=== PATIENT | female | born 1960 | race Caucasian/White ===

== ENCOUNTER 2019-10-07 14:33 | Outpatient (CLI) | payer BC, SELFPAY ==
--- NOTE | ~2019-10-07 | XR_ITS ---
EXAMINATION: XR pelvis 1-2V DATE: 10/07/2019 14:57 INDICATION: Left hip pain. TECHNIQUE: An anteroposterior view of the pelvis was obtained. COMPARISON: None. FINDINGS: Bone alignment is normal. No fracture. There is mild osteoarthritis of the hips. There is m ild lumbar spondylosis. IMPRESSION: 1. Mild osteoarthritis of the hips. Reviewed, dictated and finalized at location A.
--- NOTE | ~2019-10-07 | XR_ITS ---
EXAMINATION: XR hip LT min 2V DATE: 10/07/2019 14:57 INDICATION: Left hip pain. TECHNIQUE: 3 views of left hip were obtained. COMPARISON: None. FINDINGS: Bone alignment is normal. No fracture. There is mild left hip osteoarthritis. IMPRESSION: 1. Mild left hip osteoarthritis. Reviewed, dictated and finalized at location A.
--- NOTE | ~2019-10-07 | XR_ITS ---
EXAMINATION: XR lumbar spine 2-3V, XR sacrum coccyx min 2V EXAM DATE: 10/07/2019 14:57 INDICATION: Low back, sacral pain. States since fall one year ago. TECHNIQUE: Lumber spine frontal, lateral, lateral L5-S1 projections for interpretation. Frontal proj ection sacrum, inlet projection sacrum and coccyx, lateral projections sacrum and coccyx. There are n o prior studies for comparison. FINDINGS: Sacrum, sacroiliac joints, sacral arcuate lines are intact. There are no acute fractures i dentified. No spondylolysis. Minimal lumbar disc disease and mild facet arthropathy. Vertebral body h eights are maintained. The vertebral bodies are aligned in the AP dimension. Paraspinal soft tissue i s unremarkable. IMPRESSION: Mild lumbar facet arthropathy. Unremarkable sacrum. Reviewed, dictated and finalized at location A. IMPRESSION: Mild lumbar facet arthropathy. Unremarkable sacrum.
== END 2019-10-07 14:34 | disposition home or self-care (01) ==
LOC: ANHIMG 14:37
PROVIDERS: PCP Family Medicine; Visit Provider Nurse Practitioner Family
DX: M25.552 Pain in left hip (principal); M54.5 Low back pain; M12.88 Other specific arthropathies, not elsewhere classified, other specified site; M16.0 Bilateral primary osteoarthritis of hip
CPT/HCPCS: 72100; 72170; 72220; 73502

== ENCOUNTER 2019-12-17 23:01 | Emergency (ER) | payer BC, SELFPAY ==
[2019-12-17 23:03] VITALS: BP 114/74; PULSE 65; RESP 18; TEMP 36.6; O2SAT 98
--- NOTE | 2019-12-17 23:40 | ED.ABDPAIN ---
HPI - Abdominal Pain General Chief Complaint: Abdominal Pain Stated Complaint: R sided abd pain Time Seen by Provider: 12/17/19 23:10 History of Present Illness HPI narrative: Right lateral abdominal pain since yesterday. COnstant. Worse with taking a deep breath and twisting movements. Tender to touch. No nausea, vomiting, diarrhea, constipation, cough, SOB. Related Data Allergies Allergy/AdvReac Type Severity Reaction Status Date / Time Penicillins Allergy Intermediate N/V Verified 08/28/11 16:44 HYDROCODONE BIT AdvReac Intermediate N/V Uncoded 08/28/11 16:44 PROPOXYPHENE NAPSYLATE AdvReac Intermediate N/V Uncoded 08/28/11 16:44 Review of Systems Review of Systems: All systems reviewed & are unremarkable except as noted in HPI and below Constitutional: Constitutional: Denies chills and Denies fever(s) Cardiovascular: Cardiovascular: Denies chest pain Respiratory: Respiratory: Denies dyspnea Gastrointestinal: Gastrointestinal: Reports abdominal pain, Reports nausea and Reports vomiting [facility] Social History Social History (Updated 12/18/19 @ 04:21 by Dre Casper MD) Smoking status: Never smoker Exam Const: General: healthy appearing, no acute distress and alert Orientation/consciousness: patient oriented x3 HENMT: Head: normal to inspection Resp: Effort & Inspection: normal respiratory effort Auscultation: clear to auscultation bilaterally Cardio: Rate: regular rate Rhythm: regular rhythm GI: Inspection: non-distended GI Palp: Yes Soft to palpation and Yes Tenderness to palpation present (GI) (superficial tenderness to right abdomen. ) Skin: General skin exam: normal color Neuro: General: patient oriented x3 and moves all extremities Speech: normal speech Extrem: General: normal to inspection Course Vital Signs Vital signs: Vital Signs Temperature 36.6 C 12/17/19 23:03 Pulse Rate 65 12/17/19 23:03 Respiratory Rate 18 12/17/19 23:03 Blood Pressure 114/74 12/17/19 23:03 Pulse Oximetry 98 12/17/19 23:03 Temperature 36.7 C 12/18/19 02:39 Pulse Rate 62 12/18/19 02:39 Respiratory Rate 16 12/18/19 02:39 Blood Pressure 104/68 12/18/19 02:39 Pulse Oximetry 100 12/18/19 02:39 MDM - Abdominal Pain MDM Narrative Medical decision making narrative: H&P indicate muscle strain. Labs unremarkable. Feeling 100% improved after toradol and valium Medical Records Attestation: I reviewed the patient's medical records. Lab Data Attestation: I reviewed the patient's lab results. Result diagrams: 12/17/19 23:37 12/17/19 23:37 Labs: Lab Results 12/17/19 12/17/19 12/18/19 Range/Units 23:37 23:37 01:43 WBC 7.3 (4.5-10.0) K/mm3 RBC 3.85 L (4.2-5.4) M/mm3 Hgb 12.4 (12.0-15.0) g/dL Hct 36.5 L (37.0-47.0) % MCV 94.8 (80-100) fl MCH 32.2 (26-34) pg MCHC 34.0 (32-36) g/dl RDW 13.0 (11.5-14.5) % Plt Count 211 (150-375) k/mm3 MPV 10.7 H (7.4-10.4) fl Immature Gran % (Auto) 0.1 (0-0.5) % Neut % (Auto) 53.8 (45.5-73.1) % Lymph % (Auto) 33.9 (18.3-44.2) % Ramsey % (Auto) 9.5 H (2.6-8.5) % Eos % (Auto) 2.2 (0-4.4) % Baso % (Auto) 0.5 (0.2-1.2) % Lymph # (Auto) 2.47 (0.9-3.2) K/mm3 Ramsey # (Auto) 0.7 H (0.1-0.6) K/mm3 Eos # (Auto) 0.2 (0-0.3) K/mm3 Baso # (Auto) 0.0 (0.0-0.1) K/mm3 Abs Immat Gran (auto) 0.01 (0.00-0.031) K/mm3 Absolute Neuts (auto) 3.9 (1.3-6.7) K/mm3 Absolute Nucleated RBC 0.0 (0.0-0.012) K/mm3 Nucleated RBC % 0.0 (0.0-0.2) % Sodium 135 L (137-145) mmol/L Potassium 3.8 (3.4-5.0) mmol/L Chloride 103 (98-107) mmol/L Carbon Dioxide 26 (22-30) mmol/L Anion Gap 6 L (8-16) mmol/L BUN 15 (7-17) mg/dL Creatinine 1.00 (0.7-1.0) mg/dL Estim Creat Clear Calc 44 ml/min Estimated GFR 57 L (59 - ) Glucose 88 (65-105) mg/dL Calcium 9.0 (8.4-10.2) mg/dL Total Bilirubin
[2019-12-17] MEDS: KETOROLAC 30 MG/ML VIAL (*BKC) IV PUSH (23:43)
[2019-12-17 23:44] LABS: Basophils Percent Auto 0.5 % (0.2-1.2); Eosinophils Absolute Auto 0.2 K/mm3 (0-0.3); Eosinophils Percent Auto 2.2 % (0-4.4); Hematocrit 36.5 % (37.0-47.0); Hemoglobin 12.4 g/dL (12.0-15.0); Immature Granulocyte Absolute 0.01 K/mm3 (0.00-0.031); Immature Granulocyte Percent A 0.1 % (0-0.5); Lymphocytes Absolute Auto 2.47 K/mm3 (0.9-3.2); Lymphocytes Percent Auto 33.9 % (18.3-44.2); Mean Corpuscular Hemoglobin 32.2 pg (26-34); Mean Corpuscular Volume 94.8 fl (80-100); Mean Platelet Volume 10.7 fl (7.4-10.4); Monocytes Absolute Auto 0.7 K/mm3 (0.1-0.6); Monocytes Percent Auto 9.5 % (2.6-8.5); Neutrophils Absolute Auto 3.9 K/mm3 (1.3-6.7); Neutrophils Percent Auto 53.8 % (45.5-73.1); Platelet Count Result 211 k/mm3 (150-375); Red Blood Count 3.85 M/mm3 (4.2-5.4); White Blood Count 7.3 K/mm3 (4.5-10.0)
[2019-12-17 23:55] LABS: Alanine Aminotransferase 13 U/L (4-35); Albumin Level 4.2 g/dL (3.5-5.1); Alkaline Phosphatase 47 U/L (38-126); Anion Gap 6 mmol/L (8-16); Aspartate Amino Transferase 22 U/L (14-36); Bilirubin,Total 0.2 mg/dL (0.2-1.3); Blood Urea Nitrogen 15 mg/dL (7-17); Carbon Dioxide 26 mmol/L (22-30); Chloride 103 mmol/L (98-107); Estimated CRCL calculation 44 ml/min; Estimated Glomerular Filt Rate 57; Glucose 88 mg/dL (65-105); Lipase 144 U/L (23-300); Potassium 3.8 mmol/L (3.4-5.0); Sodium 135 mmol/L (137-145)
[2019-12-18 01:05] VITALS: BP 113/64; PULSE 62; RESP 16; O2SAT 99
[2019-12-18 01:52] LABS: Add Urine Microscopic? YES; Appearance Urine Clear (Clear); Bacteria Urine Trace /hpf; Bilirubin Urine Negative (Negative); Blood Urine 2+ (Negative); Color Urine Straw (Yellow); Glucose Urine UA Negative (Negative); Ketones Urine Negative (Negative); Leukocyte Esterase Ur Negative LEU/UL (Negative); Nitrate Urine Negative (Negative); Protein Urine Negative (Negative); RBC Urine 0-2 /hpf (0-2); Specific Grav Ur 1.011 (1.001-1.035); Squamous Epithelial Cell Urine Few /hpf (Few); Urobilinogen Urine Negative mg/dL (<2.0); WBC Urine 0-3 /hpf
[2019-12-18 02:39] VITALS: BP 104/68; PULSE 62; RESP 16; TEMP 36.7; O2SAT 100
== END 2019-12-18 02:39 | disposition home or self-care (01) ==
PROVIDERS: Emergency Provider Emergency Medicine; PCP Family Medicine
DX: S39.011A Strain of muscle, fascia and tendon of abdomen, initial encounter (principal); X58.XXXA Exposure to other specified factors, initial encounter
CPT/HCPCS: 36415; 80053; 81001; 83690; 85025; 96374; 96375; 99284; J1885; J3360

== ENCOUNTER 2020-01-05 07:50 | Outpatient (CLI) | payer BC, SELFPAY ==
--- NOTE | ~2020-01-05 | US_ITS ---
EXAMINATION: US right upper quadrant DATE: 01/05/2020 08:58 INDICATION: Right upper quadrant abdominal pain. TECHNIQUE: Multiple grayscale and Doppler ultrasound images of the abdomen were obtained. COMPARISON: CT abdomen and pelvis 09/18/2005 FINDINGS: The visualized portions of the head and body of the pancreas are normal. The liver is melissa l without focal lesion. There is normal flow in main portal vein. The gallbladder is normal in size a nd contains gallstones. No gallbladder wall thickening or sonographic Perez sign. The common duct is normal and measures 6 mm. IMPRESSION: 1. Cholelithiasis. No evidence of acute cholecystitis. Reviewed, dictated and finalized at location A.
== END 2020-01-05 07:51 | disposition home or self-care (01) ==
PROVIDERS: PCP Family Medicine; Visit Provider Nurse Practitioner
DX: K80.20 Calculus of gallbladder without cholecystitis without obstruction (principal)
CPT/HCPCS: 76705

== ENCOUNTER → 2020-03-28 10:04 | Outpatient (CLI) | payer BC, SELFPAY ==
--- NOTE | ~2020-03-28 | MM_ITS ---
EXAMINATION: MM screening [place] BI w ridge HISTORY: Screening mammogram TECHNIQUE: Craniocaudal and mediolateral oblique 3-D tomosynthesis images were obtained and synthetic 2-D images were generated. CAD analysis was submitted and interpreted. COMPARISON: 02/18/2019 diagnostic left mammogram and complete left breast ultrasound 02/04/2019, 11/30/2017, 08/03/2016 bilateral digital screening mammogram examinations BREAST PARENCHYMAL COMPOSITION: There are scattered areas of fibroglandular density. FINDINGS: A biopsy marker on the right; history of prior benign right breast biopsy Stable fibroglandular asymmetry. There is no evidence of suspicious mass, calcification, or bi architect ural distortion to suggest malignancy in either breast. There has been no suspicious interval change. IMPRESSION: 1. No mammographic evidence of malignancy. 2. Recommend routine screening mammography in one year. BI-RADS Category 2: Benign finding(s). Reviewed, dictated and finalized at location A. [employer]
== END ==
PROVIDERS: Visit Provider Nurse Practitioner Obstetrics & Gynecology
DX: Z12.31 Encounter for screening mammogram for malignant neoplasm of breast (principal)
CPT/HCPCS: 77063; 77067

== ENCOUNTER → 2021-12-05 10:24 | Outpatient (CLI) | payer BC, SELFPAY ==
--- NOTE | ~2021-12-05 | DEXA_ITS ---
Bone Density Report Name: MARY OSORIO Age: 61 Sex: Female Ethnicity: White Date of : 1960 Indication: monitoring treatment; height loss; postmenopausal Referring Provider: Claudia, Carrie Benton Study: Bone densitometry was performed. Exam Date: December 05, 2021 Accession number: [id number] Bone Density: Region BMD T-score Z-score Classification AP Spine (L1-L4) 1.092 0.4 1.9 Normal Femoral Neck (Left) 0.755 -0.8 0.5 Normal Total Hip (Left) 0.985 0.4 1.4 Normal Femoral Neck (Right) 0.752 -0.9 0.5 Normal Total Hip (Right) 0.943 0.0 1.0 Normal Total Hip Mean 0.964 0.2 1.2 Normal World Health Organization criteria for BMD impression classify patients as: Normal (T-score at or above -1.0), Osteopenia (T-score between -1.0 and -2.5), or Osteoporosis (T-score at or below -2.5). 10-year Fracture Risk: FRAX not reported because: All T-scores for Spine Total, Hip Total, Femoral Neck at or above -1.0 Treated for osteoporosis Previous Exams: Region Exam Age BMD T-score BMD Change BMD Change Date g/cm2 vs Baseline vs Previous AP Spine(L1-L4) 12/05/2021 61 1.092 0.4 0.098* 0.098* 07/22/2015 54 0.993 -0.5 Total Hip(Left) 12/05/2021 61 0.985 0.4 0.073* 0.073* 07/22/2015 54 0.912 -0.2 Total Hip(Right) 12/05/2021 61 0.943 0.0 0.045* 0.045* 07/22/2015 54 0.899 -0.4 *Denotes significance at 95% confidence level, LSC for AP Spine = 0.022 g/cm2, LSC for Total Hip = 0.027 g/cm2 Clinical Information Provided by Patient: Has 3 or more alcoholic drinks per day Is being treated for osteoporosis Has used the following medications: HRT (i.e. estrogen/hormone therapy), RUDOLPH SIN Patient maximum height was 64 Menopause Age: 50 Drinks caffeinated beverages Onset of menses at age 12 Number of children 2 Impression: The patient has normal bone mass. The patient has risk factors, including: excessive alcohol use. No significant bone loss was observed. Discussion: PATIENT UNDER TREATMENT WITH NO SIGNIFICANT BMD LOSS SINCE LAST EXAM. In an untreated patient, BMD typically declines with age. A lack of decline or gain is usually a sign that treatment is efficacious and fracture risk is reduced. It is important to ask patients whether they are taking their medications and to encourage continued and appropriate compliance with their osteoporosis therapies to reduce fracture risk. It is also
--- NOTE | ~2021-12-05 | MM_ITS ---
EXAMINATION: MM screening [place] BI w ridge HISTORY: Screening TECHNIQUE: Craniocaudal and mediolateral oblique 3-D tomosynthesis images were obtained and synthetic 2-D images were generated. CAD analysis was submitted and interpreted. COMPARISON: Comparison to multiple prior studies sequentially, with oldest reviewed study dated 08/03. BREAST PARENCHYMAL COMPOSITION: The breasts are heterogenously dense, which may obscure small masses FINDINGS: The right breast is stable without evidence for malignancy. There is a mass in the subareol ar location of the left breast, lower central left breast. IMPRESSION: 1. Left breast mass in the lower central left breast anteriorly. 2. Additional mammographic views and possible breast ultrasound are recommended. BI-RADS Category 0: Incomplete: Needs additional imaging evaluation. Reviewed, dictated and finalized at location A. IMPRESSION: 1. Left breast mass in the lower central left breast anteriorly. 2. Additional mammographic views and possible breast ultrasound are recommended . BI-RADS Category 0: Incomplete: Needs additional imaging evaluation.
== END ==
PROVIDERS: PCP Family Medicine; Visit Provider Nurse Practitioner Obstetrics & Gynecology
DX: Z12.31 Encounter for screening mammogram for malignant neoplasm of breast (principal); Z78.0 Asymptomatic menopausal state; R92.8 Other abnormal and inconclusive findings on diagnostic imaging of breast
CPT/HCPCS: 77063; 77067; 77080

== ENCOUNTER → 2021-12-19 08:37 | Outpatient (CLI) | payer BC, SELFPAY ==
--- NOTE | ~2021-12-19 | MMUS_ITS ---
EXAMINATION: MM diagnostic [place] LT w ridge, US breast LT complete HISTORY: Mass reported in lower central anterior left breast on 12/05/2021 screening mammogram TECHNIQUE: Additional 3-D tomosynthesis images of the left breast were performed and synthetic 2-D im ages were generated. CAD analysis was submitted and interpreted. High resolution complete left breast ultrasound including all 4 quadrants and subareolar area was performed. COMPARISON: 12/05/2021 bilateral screening mammogram FINDINGS: MAMMOGRAPHIC FINDINGS: Circumscribed approximately 7 x 9 mm opacity is noted in the lower central left breast (ML Tomosynthe sis image 30/68; MLO spot Tomosynthesis image 35/63), corresponding to the screening mammogram findin g. ULTRASOUND: 4:00 2 cm from nipple: 6.9 mm simple cyst 6:00 1 cm from nipple: Septated 6.7 x 8.3 x 7.2 mm cyst No suspicious mass or shadowing is detected. IMPRESSION: 1. Benign findings 2. Routine mammographic screening is recommended BI-RADS Category 2: Benign finding(s). Reviewed, dictated and finalized at location A. IMPRESSION: 1. Benign findings 2. Routine mammographic screening is recommended BI-RADS Category 2: Benign finding(s).
== END ==
PROVIDERS: PCP Family Medicine; Visit Provider Nurse Practitioner Obstetrics & Gynecology
DX: R92.8 Other abnormal and inconclusive findings on diagnostic imaging of breast (principal)
CPT/HCPCS: 76641; 77061; 77065; G0279

== ENCOUNTER 2022-12-08 08:57 | Outpatient (CLI) | payer BC, SELFPAY ==
--- NOTE | 2022-12-08 09:15 | ECG_ITS ---
Measurements Intervals [place] Rate: 56 P: 64 MD: 151 QRS: -20 QRSD: 86 T: 28 QT: 404 QTc: 393 Interpretive Statements SINUS BRADYCARDIA NO PREVIOUS ECG AVAILABLE FOR COMPARISON Electronically Signed On 12-08-2022 9:28:33 CDT by Cheyenne Dyer M.D.
== END 2022-12-08 08:58 | disposition home or self-care (01) ==
PROVIDERS: PCP Family Medicine; Visit Provider Anesthesiology
DX: Z01.810 Encounter for preprocedural cardiovascular examination (principal); R00.1 Bradycardia, unspecified; F17.210 Nicotine dependence, cigarettes, uncomplicated
CPT/HCPCS: 93005

== ENCOUNTER 2022-12-19 00:50 | Day surgery (SDC) | payer BC, SELFPAY ==
[2022-12-07 15:10] VITALS: BMI 26.6
--- NOTE | 2022-12-07 15:32 | PC.NURSE ---
Report to the Outpatient Waiting Room, entrance under the green pavilion located off [facility], at time _1030 on date _12/19/22. Planned Procedure Time: 1230_. Time changes happen often and if your time is changed the preop area will call you the afternoon before. - You and your visitor will be asked to self-screen and do not enter if you have any COVID symptoms. - A mask is optional within the hospital at this time. Patients may have clear liquids (water, carbonated beverages, clear teas, apple juice) until 3 hours prior to surgery with a maximum of 20 ounces. - No food from midnight until time of surgery - Infants may have breast milk until 4 hours before surgery, formula 6 hours prior to surgery. - Children will be allowed to drink immediately following surgery. If applicable, please bring a bottle or sippy cup to assist with drinking. Juice, water, soda, and popsicles are readily available. For infants on formula, please bring formula the day of surgery. Pacifiers are allowed. Take the following medications with a SIP of water the morning of surgery: __n/a DO NOT STOP ANY OF YOUR OTHER PRESCRIPTION MEDICATIONS PRIOR TO SURGERY ?EXCEPT THE FOLLOWING Medications to discontinue per physician __multivitamin Date to take last dose____12/16/22 Please no make-up, nail palauan, hairspray, perfume, deodorant, or body powder the day of surgery. No jewelry (including any body piercings) or valuables the day of surgery, leave them at home. Please take a shower or bath the night before, or the morning of, surgery with an antibacterial soap. Wear comfortable, loose fitting clothing. Children are encouraged to wear pajamas. - Jewelry must be removed prior to entering the operating room. Rings and piercings that are not removed may be cut off. - The hospital will not accept responsibility for valuables. - Please leave all valuables, including medications, at home the day of surgery. If you are going home after surgery, a licensed local company hazmat driver must drive you home. - NO public transportation without another adult if you receive anesthesia. - We recommend that an adult stay with you for 24 hours following discharge. - We also recommend that you do not drive, make important decision, drink alcoholic beverages, or take any drugs that were not prescribed by your health care provider for at least 24 hours after your discharge time. For Pediatric surgeries, we recommend two adults accompany the child home. Follow any additional instructions given to you from your surgeon. If you or anyone in your household have experienced Covid symptoms in the past week, please notify your surgeon or the nurse liaison at the phone number below for possible testing. Telephone instructions given to Fany Jiménezand asked if any additional questions and then verbalized understanding. Patient advised to call surgeon office or pre surgery nurse liaison [phone] if any additional questions.
--- NOTE | 2022-12-18 13:40 | P.PNAN_ITS ---
Anes - Initial Pre Proc Eval Procedure: Operation Date: 12/19/22 12:30 Proposed Procedures p Laparoscopic Bilateral Salpingo Oophorectomy - Josselyn Rubio MD Date/Time: 12/18/22 13:40 Surgeon: Josselyn Rubio MD Pre Op Diagnosis: mass of ovary Patient Data Age: 62 Gender: F Height: 1.57 m Weight: 66 kg Allergies Allergy/AdvReac Type Severity Reaction Status Date / Time Penicillins Allergy Intermediate N/V Verified 08/28/11 16:44 HYDROCODONE BIT AdvReac Intermediate N/V Uncoded 08/28/11 16:44 PROPOXYPHENE NAPSYLATE AdvReac Intermediate N/V Uncoded 08/28/11 16:44 Home Medications Medication Instructions Recorded Confirmed Type ibuprofen 600 mg tablet 600 mg PO QID PRN pain #30 tabs 12/18/19 12/07/22 Rx estradiol-norethindrone acet 1 0.5 tablet PO EVERY OTHER DAY 12/07/22 12/07/22 History mg-0.5 mg tablet multivit with minerals-iron 18 1 tablet PO DAILY 12/07/22 12/07/22 History mg-folic ac 400 mcg-vit K 25 mcg tablet (Adults Multivitamin) Results Review: All pre-operative results and documents have been reviewed as part of the pre- operative evaluation. [facility] Social History Social History (Updated 12/18/19 @ 04:21 by Dre Casper MD) Smoking packs per day: 1 Smoking cigarettes per day: 20.0 Years smoked: 30 Smoking pack-years: 30.00 Smoking status: Former smoker Tobacco type: cigarettes Alcohol intake: current Substance use: never Last use: 05/2010 Living arrangements: with family Spiritual care concerns: No Anes - Eval Final PreProcedure Day of Procedure 12/18/22 13:40 Results Review: All pre-operative results and documents have been reviewed as part of the pre- operative evaluation. Informed Consent: The patient's anesthetic plan and its attendant risks and benefits were discussed with the patient/family/POA. Questions were solicited and answers provided to the satisfaction of the patient/family/POA.
[2022-12-19] VITALS (9 sets, daily range): BP systolic 99–122; BP diastolic 47–65; PULSE 50–66; RESP 10–18; TEMP 36.3–36.5; O2SAT 100; BMI 26.1
[2022-12-19] MEDS: LACTATED RINGERS 1,000 ML 30 ML IV CONT ×2 (10:55→14:37)
[2022-12-19] MEDS: KETOROLAC 15 MG/ML VIAL (*BKC) IV PUSH (11:05)
[2022-12-19] MEDS: ACETAMINOPHEN 500 MG TABLET 1000 MG PO (11:05)
--- NOTE | 2022-12-19 12:42 | P.PNAN_ITS ---
Anes - Initial Pre Proc Eval Procedure: Operation Date: 12/19/22 12:30 Proposed Procedures p Laparoscopic Bilateral Salpingo Oophorectomy - Josselyn Rubio MD Date/Time: 12/19/22 12:42 Surgeon: Josselyn Rubio MD Pre Op Diagnosis: mass of ovary Patient Data Age: 62 Gender: F Height: 1.57 m Weight: 64.8 kg Last Vital Signs Temp 36.3 C L 12/19/22 10:30 Pulse 60 12/19/22 10:30 Resp 16 12/19/22 10:30 BP 100/65 12/19/22 10:30 Pulse Ox 100 12/19/22 10:30 O2 Del Method Room Air 12/19/22 10:30 Allergies Allergy/AdvReac Type Severity Reaction Status Date / Time Penicillins Allergy Intermediate N/V Verified 12/19/22 11:00 hydrocodone AdvReac Intermediate Nausea and Verified 12/19/22 11:00 Vomiting propoxyphene AdvReac Intermediate Nausea and Verified 12/19/22 11:00 Vomiting Home Medications Medication Instructions Recorded Confirmed Type ibuprofen 600 mg tablet 600 mg PO QID PRN pain #30 tabs 12/18/19 12/07/22 Rx estradiol-norethindrone acet 1 0.5 tablet PO EVERY OTHER DAY 12/07/22 12/07/22 History mg-0.5 mg tablet multivit with minerals-iron 18 1 tablet PO DAILY 12/07/22 12/19/22 History mg-folic ac 400 mcg-vit K 25 mcg tablet (Adults Multivitamin) Patient hx anesthesia problems: none Family hx anesthesia problems: none Results Review: All pre-operative results and documents have been reviewed as part of the pre- operative evaluation. [facility] Social History Social History Smoking packs per day: 1 Smoking cigarettes per day: 20.0 Years smoked: 30 Smoking pack-years: 30.00 Smoking status: Former smoker Tobacco type: cigarettes Alcohol intake: current Substance use: never Last use: 05/2010 Living arrangements: with family Spiritual care concerns: No Anes - Eval Final PreProcedure Day of Procedure 12/19/22 12:42 Patient weight: overweight Heart: regular rate and rhythm Lungs: decreased breath sounds Airway: Mallampati scale class II Neurological: alert and oriented Last oral intake: >/= 8 hours ASA classification: II Emergent: no Anesthetic plan: proceed Anesthesia type and monitoring: general ETT and standard monitoring Results Review: All pre-operative results and documents have been reviewed as part of the pre- operative evaluation. Informed Consent: The patient's anesthetic plan and its attendant risks and benefits were discussed with the patient/family/POA. Questions were solicited and answers provided to the satisfaction of the patient/family/POA.
--- NOTE | 2022-12-19 12:45 | WPDHPUPDATE1 ---
History and Physical Update Update Date/Time: 12/19/22 12:45 History and Physical has been reviewed, including an updated exam of the patient. There are NO changes in the patient's condition. Risks, benefits, and alternatives have been discussed and questions answered. Patient agrees to proceed with procedure.
--- NOTE | 2022-12-19 14:32 | W.PM.PROC2 ---
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 Most were very small and vesicular in nature some appeared to be very small masses. Description of Procedure The patient was taken to the operating room. She was prepped and draped in the dorsal lithotomy position after induction general anesthesia. A 5 mm incision was made with a scalpel on the abdominal skin in the left upper quadrant of the abdomen. A 5 mm trocar was inserted into the intra-abdominal cavity under direct visualization the scope. In the same fashion a 11 mm left lower quadrant trocar was inserted and a 5 mm infraumbilical trocar was inserted. The above findings were noted. It appeared that a this for malignancy it was spread on the peritoneum up to the area of the diaphragm. It did not appear confined to the ovary, and therefore tissue samples could be obtained. So the ovaries were removed. Bilateral infundibulopelvic ligaments were cauterized and transected with LigaSure cautery. The para ovarian and para tubal salpinx was cauterized and transected around medially to the cornual region of the uterus where the suspensory ligament of the ovary and the fallopian tube were cauterized transected with LigaSure cautery. These were placed in a bag and taken at the left lower quadrant trocar site.. Prior to the removal of the ovaries peritoneal cytology was obtained. Fluids irrigated the pelvis and around the lower abdomen. Irrigation was withdrawn through a long cannula and a syringe. The pneumoperitoneum was reduced. The trocars were removed. Skin was closed with subcuticular 4 micro. The patient's incisions were covered with Dermabond. She was taken recovery room in stable condition. Sponge lap and needle counts were correct x2. Estimated Blood Loss 25 Complications No immediate complications Condition Stable Disposition Same day
[2022-12-19] MEDS: ONDANSETRON INJ 4 MG/2 ML VIAL IV PUSH (15:05)
[2022-12-19] MEDS: fentaNYL CITRATE INJ (*CRX) 100 MCG/2 ML VIAL 25 MCG IV PUSH ×2 (15:18→15:24)
[2022-12-19] MEDS: oxyCODONE HCL (*CRX) 5 MG TAB IR PO (16:04)
--- NOTE | 2022-12-26 13:46 | WPDHPUPDATE1 ---
History and Physical Update Update Date/Time: 12/26/22 13:46 History and Physical has been reviewed, including an updated exam of the patient. There are NO changes in the patient's condition. Risks, benefits, and alternatives have been discussed and questions answered. Patient agrees to proceed with procedure.
--- NOTE | 2022-12-26 13:57 | WPDHPUPDATE1 ---
History and Physical Update Update Date/Time: 12/26/22 13:57 History and Physical has been reviewed, including an updated exam of the patient. There are NO changes in the patient's condition. Risks, benefits, and alternatives have been discussed and questions answered. Patient agrees to proceed with procedure.
== END 2022-12-19 16:49 | disposition home or self-care (01) ==
PROVIDERS: PCP Family Medicine; Visit Provider Obstetrics & Gynecology
PROC: (CPT 49320; principal; 2022-12-19 12:30)
DX: D39.12 Neoplasm of uncertain behavior of left ovary (principal); N94.89 Other specified conditions associated with female genital organs and menstrual cycle; D27.9 Benign neoplasm of unspecified ovary; Z87.891 Personal history of nicotine dependence
CPT/HCPCS: 58661; 88104; 88108; 88305; 88342; A9270; J1100; J1885; J2250; J2405; J2704; J3010; J7030; J7120

== ENCOUNTER 2023-07-19 10:45 | Outpatient (CLI) | payer BC, SELFPAY ==
--- NOTE | ~2023-07-19 | MM_ITS ---
EXAMINATION: MM screening [place] w [facility] HISTORY: Screening mammogram TECHNIQUE: Craniocaudal and mediolateral oblique 3-D tomosynthesis images were obtained and synthetic 2-D images were generated. CAD analysis was submitted and interpreted. COMPARISON: 12/19/2021 diagnostic left mammogram and complete left breast ultrasound 12/05/2021, 03/28/2020 bilateral screening mammogram examinations BREAST PARENCHYMAL COMPOSITION: There are scattered areas of fibroglandular density. FINDINGS: There is a history of bilateral reduction mammoplasty in 2011. Stable mild fibroglandular a symmetry. There is no evidence of suspicious mass, calcification, or architectural distortion to sugg est malignancy in either breast. There has been no suspicious interval change. IMPRESSION: 1. Status post bilateral reduction mammoplasty. No mammographic evidence of malignancy 2. Recommend routine screening mammography in one year. BI-RADS Category 2: Benign finding(s)... Reviewed, dictated and finalized at location A. IMPRESSION: 1. Status post bilateral reduction mammoplasty. No mammographic evidence of mal ignancy 2. Recommend routine screening mammography in one year. BI-RADS Category 2: Benign finding(s)...
== END 2023-07-19 10:46 ==
LOC: MICIMG 10:46
PROVIDERS: PCP Nurse Practitioner Obstetrics & Gynecology; Visit Provider Nurse Practitioner Obstetrics & Gynecology
DX: Z12.31 Encounter for screening mammogram for malignant neoplasm of breast (principal)
CPT/HCPCS: 77063; 77067